=== PATIENT | male | born 2005 | race Caucasian/White ===

== ENCOUNTER 2025-06-23 04:22 | Inpatient (IN) | payer OTHER ==
[~2025-06-23] VITALS: Ht 180.3 cm; Wt 75.0 kg
[2025-06-23 05:03] LABS: PLATELET COUNT (AUTO) 287 K/uL (150-450); RED BLOOD CELL COUNT(AUTO) 5.97 MIL/uL (4.50-5.90); RED CELL DISTRIBUTION WIDTH 13.4 % (11.5-14.5); WHITE BLOOD COUNT (AUTO) 8.1 K/uL (4.5-11.0)
[2025-06-23 05:06] LABS: COVID AG,FIA SOURCE NASAL SWAB
[2025-06-23 05:14] LABS: CALCIUM, TOTAL 9.5 mg/dL (8.8-10.5); CREATININE 0.96 mg/dL (0.60-1.30); GLOMERULAR FILTR. RATE CALC > 60 mL/min (>60); GLUCOSE,RANDOM 101 mg/dL (70-110); SODIUM SERUM 139 mmol/L (136-145); UREA NITROGEN, BLOOD 15 mg/dL (7-18)
[2025-06-23 05:27] LABS: SARS-COV2 (COVID) ANTIGEN,FIA Negative (Negative)
[2025-06-23] MEDS ORDERED: ACETAMINOPHEN 325 MG TABLET PO PRN (07:45)
[2025-06-23] MEDS ORDERED: ONDANSETRON HCL 4 MG/2 ML VIAL IVP PRN (07:45)
[2025-06-23] MEDS: HEPARIN SODIUM,PORCINE 5,000 UNITS/ML VIAL SQ SCH (08:00)
[2025-06-23 10:36] VITALS: BP 127/80; PULSE 58; RESP 18; TEMP 97.7; O2SAT 98
[2025-06-23 10:41] VITALS: BP 127/80; PULSE 97; RESP 18; TEMP 98.3; O2SAT 99
[2025-06-23 11:47] VITALS: BP 127/80; PULSE 97; RESP 18; TEMP 98.3; O2SAT 99
[2025-06-23 11:48] LABS: APPEARANCE,URINE HAZY (CLEAR); GLUCOSE, URINE (UA) NEGATIVE (NEGATIVE); LEUKOCYTE ESTERASE ,URINE NEGATIVE (NEGATIVE); NITRATE,URINE NEGATIVE (NEGATIVE); OCCULT BLOOD,URINE NEGATIVE (NEGATIVE); PH,URINE DRUG SCREEN 6.0 (5.0-8.0); SPECIFIC GRAVITIY, URINE 1.033 (1.003-1.030)
[2025-06-23 11:56] LABS: ALCOHOL, URINE DRUG SCREEN NEGATIVE (NEGATIVE); AMPHET/METH SCREEN,URINE NEGATIVE (NEGATIVE); BARBITURATE SCREEN, URINE NEGATIVE (NEGATIVE); CANNABINOID SCREEN,URINE NEGATIVE (NEGATIVE); COCAINE SCREEN,URINE NEGATIVE (NEGATIVE); METHADONE SCREEN, URINE NEGATIVE (NEGATIVE)
[2025-06-23 12:15] VITALS: BP 127/80; PULSE 97; RESP 18; TEMP 98.3; O2SAT 99
[2025-06-23 21:18] VITALS: BP 130/78; PULSE 76; RESP 18; TEMP 98.1; O2SAT 98
[2025-06-24 04:34] VITALS: BP 121/77; PULSE 76; RESP 16; TEMP 97.5; O2SAT 95
[2025-06-24 06:42] LABS: PLATELET COUNT (AUTO) 259 K/uL (150-450); RED BLOOD CELL COUNT(AUTO) 5.96 MIL/uL (4.50-5.90); RED CELL DISTRIBUTION WIDTH 13.4 % (11.5-14.5); WHITE BLOOD COUNT (AUTO) 6.7 K/uL (4.5-11.0)
[2025-06-24 06:54] LABS: CALCIUM, TOTAL 9.2 mg/dL (8.8-10.5); CREATININE 0.99 mg/dL (0.60-1.30); GLOMERULAR FILTR. RATE CALC > 60 mL/min (>60); GLUCOSE,RANDOM 98 mg/dL (70-110); SODIUM SERUM 138 mmol/L (136-145); UREA NITROGEN, BLOOD 17 mg/dL (7-18)
[2025-06-24 08:00] VITALS: BP 105/88; PULSE 68; RESP 18; TEMP 97.9; O2SAT 99
[2025-06-24 20:07] VITALS: BP 118/70; PULSE 80; RESP 18; TEMP 97.5; O2SAT 97
[2025-06-25 04:00] VITALS: BP 123/75; PULSE 73; RESP 18; TEMP 98; O2SAT 98
[2025-06-25 09:13] VITALS: BP 113/75; PULSE 64; RESP 18; TEMP 97.8; O2SAT 100
== END 2025-06-25 17:27 | DRG 641 ==
LOC: EMS 04:32 → EDH 06:48 → 6N 10:33
PROVIDERS: ADMIT Internal Medicine; ATTEND Internal Medicine
PROC: GZ58ZZZ Individual Psychotherapy, Cognitive-Behavioral (ICD-10-PCS; principal; 2025-06-24)
PROC: GZ56ZZZ Individual Psychotherapy, Supportive (ICD-10-PCS; 2025-06-24)
DX: E87.3 Alkalosis (principal); R45.851 Suicidal ideations; F32.1 Major depressive disorder, single episode, moderate; F43.21 Adjustment disorder with depressed mood; Z20.822 Contact with and (suspected) exposure to COVID-19
CPT/HCPCS: 80048; 80307; 81003; 83735; 85025; 99285; G0480; J1644